=== PATIENT | female | born 1990 | race African-American/Black ===

== ENCOUNTER 2024-11-02 13:04 | Emergency (ER) | payer MEDICAID ==
[~2024-11-02] VITALS: Ht 172.7 cm; Wt 78.0 kg
[~2024-11-02 13:04] MED LIST: AMIODARONE HCL 50MG/ML 3ML VIAL IV ONE
[2024-11-02 13:06] VITALS: BP 0/0; PULSE 0; RESP 14; TEMP 36.3; O2SAT 70
== END 2024-11-02 13:36 ==
LOC: MERGE 13:04 → UNMERGE 13:04 → ER 13:04
DX: O00.90 Unspecified ectopic pregnancy without intrauterine pregnancy (principal); O08 Complications following ectopic and molar pregnancy; E11.9 Type 2 diabetes mellitus without complications; I11.0 Hypertensive heart disease with heart failure; I25.10 Atherosclerotic heart disease of native coronary artery without angina pectoris; I50.9 Heart failure, unspecified; Z55.6 Problems related to health literacy; Z59.00 Homelessness unspecified
CPT/HCPCS: 36430; 86920; 36415; 31500; 99291; J0282; J3490; Z7610; 99285; P9016